=== PATIENT | female | born 1970 | race Caucasian/White ===

== ENCOUNTER 2018-02-26 19:28 | Emergency (ER) | payer MEDICAID, OTHER ==
--- NOTE | 2018-02-26 20:31 | EDM.PDOC ---
ED HPI GENERAL MEDICAL PROBLEM - General Chief Complaint: Lower Extremity Injury/Pain Stated Complaint: RIGHT FOOT/ANKLE PAIN Time Seen by Provider: 02/26/18 20:06 Source of Information: Reports: Patient History Limitations: Reports: No Limitations - History of Present Illness INITIAL COMMENTS - FREE TEXT/NARRATIVE: right foot pain; in the arch she fell yesterday when she pulled on a branch has an abrasion just above the ankle, medial side Took ibuprofen, helped a little didn't feel a pop; hurts to walk on. 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 ED EXAM, GENERAL - Physical Exam Exam: See Below Exam Limited By: No Limitations General Appearance: Alert, WD/WN, No Apparent Distress Head: Atraumatic, Normocephalic Neck: Full Range of Motion Respiratory/Chest: No Respiratory Distress, Lungs Clear, Normal Breath Sounds Cardiovascular: Regular Rate, Rhythm Peripheral Pulses: 4+: Posterior Tibial (L), Posterior Tibial (R), Dorsalis Pedis (L), Dorsalis Pedis (R) Extremities: Normal Inspection, Normal Capillary Refill, Other (right foot, arch ; pain ful to bear weight on or touch. +sensation, cms intact) Neurological: Alert, Oriented, CN II-XII Intact Psychiatric: Normal Affect, Normal Mood Skin Exam: Warm, Dry, Intact, Normal Color Course - Vital Signs Last Recorded V/S: Last Vital Signs Temp 99.9 F 02/26/18 20:15 Pulse 87 02/26/18 20:15 Resp 16 02/26/18 20:15 BP 119/72 02/26/18 20:15 Pulse Ox 97 02/26/18 20:15 - Orders/Labs/Meds Orders: Active Orders 24 hr Category Date Time Status Foot Comp Min 3V Rt [CR] Stat Exams 02/26/18 20:24 Taken - Re-Assessments/Exams Free Text/Narrative Re-Assessment/Exam: 02/26/18 20:29 xray of right foot; pending Free Text/Narrative Re-Assessment/Exam: 02/26/18 20:53 xray reveals no acute fractures 02/26/18 20:59 wrapped with SHIRLEY/ recommend good arch support FU with pcp if pain persists Departure - Departure Time of Disposition: 20:53 Disposition: Home, Self-Care 01 Condition: Good Clinical Impression: Right foot pain, Plantar fasciitis of right foot - Discharge Information Instructions: Plantar Fasciitis Referrals: Jamel Wilks MD [Primary Care Provider] - Forms: ED Department Discharge - Problem List & Annotations (1) Right foot pain SNOMED Code(s): 45568390 Code(s): M79.671 - PAIN IN RIGHT FOOT Status: Acute Priority: Low Current Visit: Yes - Problem List Review Problem List Initiated/Reviewed/Updated: Yes - My Orders Last 24 Hours: My Active Orders 02/26/18 20:24 Foot Comp Min 3V Rt [CR] Stat - Assessment/Plan Last 24 Hours: My Active Orders 02/26/18 20:24 Foot Comp Min 3V Rt [CR] Stat
--- NOTE | 2018-03-01 08:36 | CR ---
FOOT RIGHT 3 views CLINICAL HISTORY:Pain, fall FINDINGS:No fracture or osseous lesion is identified. The there is some osteoarthritic spurring in th e talonavicular joint. Impression: Mild osteoarthritic change
== END 2018-02-26 21:14 | disposition home or self-care (01) ==
LOC: JP.ED 19:28
DX: M72.2 Plantar fascial fibromatosis (principal); F17.210 Nicotine dependence, cigarettes, uncomplicated; Z88.2 Allergy status to sulfonamides
CPT/HCPCS: 73630-26-RT; 73630-RT; 99284